=== PATIENT | male | born 1945 | race Hispanic/Latino ===

== ENCOUNTER 2018-12-22 09:01 | Day surgery (SDC) | payer OTHER ==
[2018-12-22] MEDS ORDERED: CEFAZOLIN/SWI 1gm 1 GM/10 ML SYR ONE (09:45)
[2018-12-22] MEDS ORDERED: NA CHLORIDE 0.9% 1,000 ML ONE (09:45)
[2018-12-22] MEDS ORDERED: BUPIVACAINE 0.5% PF 10 ML VIAL ONE (10:15)
[2018-12-22] MEDS ORDERED: MIDAZOLAM HCL 2 MG/2 ML INJ ONE (11:38)
[2018-12-22] MEDS ORDERED: FENTANYL CITR 100 MCG/2 ML ONE (11:38)
[2018-12-22] MEDS ORDERED: LIDOCAINE 1% MPF 5 ML VIAL ONE (11:38)
[2018-12-22] MEDS ORDERED: PROPOFOL 200 MG/20 ML VIAL IV ONE (11:38)
[2018-12-22] MEDS ORDERED: ROCURONIUM 50 MG/5 ML VIAL IV ONE (12:04)
[2018-12-22] MEDS ORDERED: GLYCOPYRROLATE 0.2 MG/ML SYR ONE ×2 (12:29)
[2018-12-22] MEDS ORDERED: NEOSTIGMINE 1 MG/ML -10 ML VIAL ONE (12:30)
[2018-12-22] MEDS ORDERED: ONDANSETRON 4 MG/2 ML VIAL ONE (12:30)
[2018-12-22] MEDS ORDERED: KETOROLAC 30 MG/ML INJ ONE (12:30)
[2018-12-22] MEDS: HYDROMORPHONE HCL 1 MG/ML INJ ONE ×2 (12:50→12:55)
[2018-12-22] MEDS ORDERED: MORPHINE 4 MG/ML SYR ONE (13:04)
[2018-12-22] MEDS ORDERED: HYDROCODONE/APAP 7.5/325 MG TAB ONE (14:12)
--- NOTE | 2018-12-23 00:13 | OP ---
Date of Procedure: 12/22/2018 Surgeon: Brandt Botello MD Welding Pantograph Machine Operator: CR Santiago Preoperative Diagnosis: Incarcerated right inguinal hernia. Postoperative Diagnosis: Incarcerated right inguinal hernia. Procedure Performed: Repair of incarcerated right inguinal hernia. Estimated Blood Loss: Minimal. Specimen: Hernia sac. Findings: As above. Anesthesia: General. Complications: None. Patient tolerated the procedure in stable condition, was taken to Recovery in good general condition. Procedure In Detail: Patient was brought to the OR and placed in supine position. General anesthesi a was begun. Patient was prepped and draped in usual sterile fashion. Marcaine 0.5% was infiltrated in a field block fashion in the right groin. Then, a 4 cm oblique incision was made between the pub ic tubercle and the anterior iliac superior spine. Subcutaneous tissue divided. Cristian fascia was i dentified and divided. Aponeurosis was identified and opened through the external ring. Ilioinguina l nerve was identified and retracted out of the field of dissection. Cord mobilized at the pubic tub ercle, skeletonized, a large indirect hernia sac with omentum present and sac open, the omentum was c arefully reduced back into the peritoneal cavity. High ligation of the sac with 2-0 Prolene suture l igature and free hand tie, then Marlex mesh plug was placed in the internal ring and secured with Prieto Kareoack stapler. [place] mesh was placed on the inguinal floor, secured medially to the pubic tubercle, superiorly to the conjoint tendon, inferiorly to the shelving edge, laterally to each other. Then, cord structures and ilioinguinal nerve were placed back in anatomic location. 2-0 Prolene was used t o close the aponeurosis. 3-0 chromic used to close Cristian fascia. [place] were used to close the sk in. Sterile dressing was applied. Patient was awakened and taken to Recovery in good general condit ion. Discharge Note: Patient will go to Day Surgery, then home when stable. Disposition: Home. Condition: Stable. Discharge Instructions: Resume home medications and diet. Activity as tolerated. No heavy lifting. Remove outer dressing in 2 days. Shower. Keep wound clean and dry. Follow up in my office in a sravani rin[place]. Call for appointment. Tylenol No. 3 one tablet p.o. q.4 p.r.n. pain, scrotal support, and ice pack as ordered. SANTIAGO/JASE Voice ID: [id number] Report ID: [id number]
== END 2018-12-22 15:05 | disposition home or self-care (01) ==
LOC: OR 09:01
PROVIDERS: ATTEND Surgery
PROC: 0YU50JZ Supplement Right Inguinal Region with Synthetic Substitute, Open Approach (ICD-10-PCS; principal; 2018-12-22 10:10)
DX: K40.30 Unilateral inguinal hernia, with obstruction, without gangrene, not specified as recurrent (principal); I10 Essential (primary) hypertension; G20 Parkinson's disease; Z95.0 Presence of cardiac pacemaker
CPT/HCPCS: 82962 ×2; 88302; 49507; J2704; J2710; J3010; J1170; J0690; J7030; J2405; J2250